=== PATIENT | female | born 1955 | race Caucasian/White ===

== ENCOUNTER 2017-05-14 07:59 | Inpatient (IN) | payer OTHER ==
[2017-05-14] MEDS ORDERED: LIDOCAINE HCL 1%, 10 MG/ML (20ML VIAL) ONE (08:59)
[2017-05-14] MEDS ORDERED: BUPIVACAINE HCL/PF 0.25% (2.5MG/ML) 10 ML VIAL ONE (08:59)
[2017-05-14] MEDS ORDERED: BETAMET ACET/BETAMET NA PH 30 MG/5 ML VIAL ONE (08:59)
[2017-05-14] MEDS ORDERED: PROPOFOL 20 ML ONE (09:05)
[2017-05-14] MEDS ORDERED: MIDAZOLAM HCL 2 MG/2 ML SINGLE DOSE VIAL ONE (09:05)
[2017-05-14] MEDS ORDERED: BETAMET ACET/BETAMET NA PH 30 MG/5 ML VIAL IJ ONE (09:44)
[2017-05-14] MEDS ORDERED: BUPIVACAINE HCL/PF 0.25% (2.5MG/ML) 10 ML VIAL IJ ONE (09:45)
[2017-05-14] MEDS ORDERED: BETAMET ACET/BETAMET NA PH 30 MG/5 ML VIAL IM ONE (09:46)
[2017-05-14] MEDS ORDERED: IOHEXOL 180 MG/1 ML ML IJ ONE (09:46)
[2017-05-14] MEDS ORDERED: LIDOCAINE HCL 1%, 10 MG/ML (20ML VIAL) NR ONE (09:46)
[2017-05-14] MEDS ORDERED: oxyCODONE HCL 5 MG TABLET PO PRN (10:25)
[2017-05-14] MEDS ORDERED: ONDANSETRON 4 MG/2 ML VIAL IVPUSH PRN (10:25)
[2017-05-14] MEDS ORDERED: LACTATED RINGERS SOLUTION 1,000 ML IV SCH (10:30)
[2017-05-14 11:29] LABS: ALBUMIN 3.6 g/dl (3.4-5.0); ANION GAP 8 (8-16); BILIRUBIN,TOTAL 0.5 mg/dL (0.2-1.0); CALCIUM 8.1 mg/dL (8.5-10.1); CO2 28 mmol/L (21-32); CREATININE 0.5 mg/dL (0.55-1.02); GLUCOSE,RANDOM 115 mg/dL (74-106); SGOT/AST 75 U/L (15-37); SGPT/ALT 131 U/L (12-78); TOT PROT 6.7 g/dl (6.4-8.2)
[2017-05-14 11:32] LABS: ALK PHOS 52 U/L (45-117); CPK 102 IU/L (26-192); TROPONIN I < 0.02 ng/ml (0.00-0.05)
--- NOTE | 2017-05-14 11:38 | CON.CARD ---
Consult Consult Specialty:: Cardiology Reason for Consultation:: non sustained VT -post op - History Source History Provided By: Patient, Medical Record - Past Medical History Cardio/Vascular: Yes: Hyperlipdemia ...: No - Alcohol/Substance Use Hx Alcohol Use: No - Smoking History Smoking history: Current every day smoker Aproximately how many cigarettes per day: 6 Home Medications - Allergies Allergies/Adverse Reactions: Allergies Allergy/AdvReac Type Severity Reaction Status Date / Time No Known Allergies Allergy Verified 05/14/17 08:32 - Home Medications Home Medications: Ambulatory Orders Simvastatin 10 mg PO DAILY 05/13/17 Vitamin E 1,000 unit PO DAILY 05/13/17 Review of Systems - Review of Systems Constitutional: reports: No Symptoms Eyes: reports: No Symptoms HENT: reports: No Symptoms Neck: reports: No Symptoms Cardiovascular: reports: No Symptoms Gastrointestinal: reports: No Symptoms Genitourinary: reports: No Symptoms Breasts: reports: No Symptoms Reported Musculoskeletal: reports: No Symptoms Integumentary: reports: No Symptoms Neurological: reports: No Symptoms Endocrine: reports: No Symptoms Hematology/Lymphatic: reports: No Symptoms Psychiatric: reports: No Symptoms Vital Signs: Vital Signs Temperature 97.8 F 05/14/17 10:15 Pulse Rate 64 05/14/17 10:45 Respiratory Rate 15 05/14/17 10:45 Blood Pressure 133/75 05/14/17 10:45 O2 Sat by Pulse Oximetry (%) 94 L 05/14/17 10:45 Constitutional: Yes: Well Nourished, No Distress, Calm Eyes: Yes: WNL, Conjunctiva Clear, EOM Intact HENT: Yes: WNL, Atraumatic, Normocephalic Neck: Yes: WNL, Supple, Trachea Midline Respiratory: Yes: WNL, Regular, CTA Bilaterally Gastrointestinal: Yes: WNL, Normal Bowel Sounds Renal/: Yes: WNL Cardiovascular: Yes: WNL, Regular Rate and Rhythm Musculoskeletal: Yes: WNL Extremities: Yes: WNL Integumentary: Yes: WNL Neurological: Yes: WNL, Alert, Oriented ...Motor Strength: WNL Psychiatric: Yes: WNL, Alert, Oriented - Other Data Labs, Other Data: CBC, BMP 05/14/17 10:35 Troponin, BNP 05/14/17 10:35 Troponin I < 0.02 Troponin, BNP 05/14/17 10:35 Troponin I < 0.02 Imaging - Results EKG: Image Reviewed (sr wnl) Assessment/Plan asymptomatic VT noticed on the tuckpointer by nurse (unclear how long, verbal report says 6 seconds)- no strips recorded s/p spinal steroid injection hlp Plan; ECHO persantine mibi in AM telemetry
--- NOTE | 2017-05-14 11:44 | PROC ---
Procedure Note Procedure: Date of service: 05/14/2017 Preoperative Diagnosis: Low back pain and lumbar radiculopathy on Left Postoperative Diagnosis: Same Procedure Performed: Lumbar Epidural Steroid Injection (LESI) on Left L4-5 with dye under Fluoroscopy Anesthesia: Local / MAC Anesthesiologist: Procedure: I discussed with the patient in detail about the risks, benefits, and alternatives to treatment not only limited to infection, headache, numbness , weakness, and injury to nerves, blood vessels and muscles. The patient understood, agreed and signed the written consent. The patient was placed in the prone position with the head, abdomen and legs supported with the pillows. The lumbosacral area was prepped and draped with Betadine times three in a sterile fashion. Lumbar vertebrae were identified under the C-arm. At L4-5 level on the Left side, 3 ml of 1 % Lidocaine was infiltrated into the skin and subcutaneous tissue. A 3 inch, #20 gauge Tuohy needle was advanced to the epidural space with loss of resistance technique under fluoroscopic guidance. Aspiration was negative for cerebrospinal fluid and blood. 2ml of Omnipaque ( radio-opaque dye) was injected to confirm the tip of the needle into epidural space and spread of dye. There was no CSF or vascular spread. The spread of dye was noted cranially and caudally on epidurogram. Aspiration was done again which was negative. A solution of 2.5 ml of Celestone, 2.5 ml of 0.25% Marcaine and a total of 5 ml was injected slowly. While Tuohy needle was withdrawn 2.0 ml of 1 % Lidocaine was infiltrated. Bleeding was checked. Betadine was wiped off. A sterile bandage was placed. The patient tolerated the procedure well. There were no immediate complications. The patient was transferred to the recovery room. The patient was observed for some time and discharged as per ASU criteria. The patient was told to apply ice at the injection site. Follow up appointment was given and also call my office at [phone]. If there is any problem, call my office or report to Emergency Room. Bar Chau M.D.
[2017-05-14 13:52] VITALS: BMI 33.4
--- NOTE | 2017-05-14 16:41 | EKG ---
Test Reason : Blood Pressure : / mmHG Vent. Rate : 063 BPM Atrial Rate : 063 BPM P-R Int : 142 ms QRS Dur : 086 ms QT Int : 406 ms P-R-T Axes : 053 033 031 degrees QTc Int : 415 ms NORMAL SINUS RHYTHM PROMINENT R WAVE IN V2, MAY BE RELATED TO TECHNICAL OR POSITIONAL FACTORS, CANNOT EXCLUDE TRUE POSTERIOR WALL PA NO PREVIOUS ECGS AVAILABLE CLINICAL CORRELATION IS RECOMMENDED Confirmed by SHEIKH COLEEN, TRISTAN ([id number] on 05/14/2017 4:40:57 PM Referred By: Bar Chau Confirmed By:TRISTAN WIGGINS MD
[2017-05-15 08:31] LABS: CPK 78 IU/L (26-192); TROPONIN I < 0.02 ng/ml (0.00-0.05)
[2017-05-15] MEDS ORDERED: REGADENOSON 0.4 MG/5 ML PRE-FILLED SYRINGE IVPUSH ONE ×2 (10:00→11:02)
[2017-05-15 10:11] VITALS: TEMP 98.2
--- NOTE | 2017-05-15 11:04 | PN ---
Progress Note, Physician - Current Medication List Current Medications: Active Medications Ondansetron HCl (Zofran Injection) 4 mg IVPUSH Q6H PRN PRN Reason: NAUSEA AND/OR VOMITING Oxycodone HCl (Roxicodone -) 5 mg PO Q4H PRN PRN Reason: MILD PAIN - Objective Vital Signs: Vital Signs Temperature 98.2 F 05/15/17 10:00 Pulse Rate 73 05/15/17 10:00 Respiratory Rate 18 05/15/17 10:00 Blood Pressure 128/76 05/15/17 10:00 O2 Sat by Pulse Oximetry (%) 98 05/14/17 20:07 Eyes: Yes: WNL, Conjunctiva Clear, EOM Intact HENT: Yes: WNL, Atraumatic, Normocephalic Neck: Yes: WNL, Supple, Trachea Midline Cardiovascular: Yes: WNL, Regular Rate and Rhythm Respiratory: Yes: WNL, Regular, CTA Bilaterally Gastrointestinal: Yes: WNL, Normal Bowel Sounds Genitourinary: Yes: WNL Musculoskeletal: Yes: WNL Extremities: Yes: WNL Edema: No Integumentary: Yes: WNL Neurological: Yes: WNL, Alert, Oriented ...Motor Strength: WNL Psychiatric: Yes: WNL Labs: CBC, BMP 05/14/17 10:35 Laboratory Results - last 24 hr 05/14/17 05/15/17 10:35 05:40 Sodium 141 Potassium 4.0 Chloride 105 Carbon Dioxide 28 Anion Gap 8 BUN 8 Creatinine 0.5 L Creat Clearance w eGFR > 60 Random Glucose 115 H Calcium 8.1 L Total Bilirubin 0.5 AST 75 H ALT 131 H Alkaline Phosphatase 52 Creatine Kinase 102 78 Troponin I < 0.02 < 0.02 Total Protein 6.7 Albumin 3.6 Assessment/Plan asymptomatic VT noticed on the monitoring tech by nurse (unclear how long, verbal report says 6 seconds)- no strips recorded s/p spinal steroid injection hlp short run of SVT last night on potline monitor echo read as mild basal septal hyperthrophy. Persantine MIBI stress test negative for ischemia. Plan; Patient may be d/c home start Toprol xl 25 qd to prevent further svt ? HOCOM ? 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 Declined offer to be followed by me. Understands importance of further w/u and proper diagnosis. Understands that future episodes of VT may be life threatening.
[2017-05-15] MEDS ORDERED: METOPROLOL SUCCINATE 25 MG TAB.SR.24H (FP) PO SCH (14:45)
[2017-05-15 15:47] VITALS: BP 142/72; PULSE 79
== END 2017-05-15 16:24 | disposition home or self-care (01) | DRG 206 ==
LOC: JASU-SURG 07:59 → JSAMEDAYSX 11:07 → J4W 13:05
PROVIDERS: ADMIT Internal Medicine Cardiovascular Disease; ATTEND Physical Medicine & Rehabilitation
PROC: 3E0R3BZ Introduction of Anesthetic Agent into Spinal Canal, Percutaneous Approach (ICD-10-PCS; 2017-05-14)
PROC: 3E0R33Z Introduction of Anti-inflammatory into Spinal Canal, Percutaneous Approach (ICD-10-PCS; principal; 2017-05-14 09:30)
DX: I97.89 Other postprocedural complications and disorders of the circulatory system, not elsewhere classified (principal); I47.2 Ventricular tachycardia; Y84.8 Other medical procedures as the cause of abnormal reaction of the patient, or of later complication, without mention of misadventure at the time of the procedure; E78.5 Hyperlipidemia, unspecified; F17.210 Nicotine dependence, cigarettes, uncomplicated; M54.5 Low back pain; M54.16 Radiculopathy, lumbar region; K76.0 Fatty (change of) liver, not elsewhere classified
CPT/HCPCS: 36415; 76000-TC; 78452-TC; 80053; 82550; 84484; 93005; 93010; 93017; 93306-TC; 94760; A9502; J2785